=== PATIENT | female | born 1960 | race Caucasian/White ===

== ENCOUNTER 2023-11-11 06:39 | Day surgery (SDC) | payer OTHER ==
[~2023-11-11] VITALS: Ht 165.1 cm; Wt 75.3 kg
[2023-11-11] MEDS ORDERED: fentaNYL citrate 0.05 MG/ML VIAL ONE (08:01)
[2023-11-11] MEDS ORDERED: LIDOCAINE 2% 100 MG/5 ML UJET TP ONE (08:02)
[2023-11-11] MEDS: fentaNYL citrate 0.05 MG/ML VIAL IVP ONE (08:25)
[2023-11-11] MEDS ORDERED: fentaNYL citrate 0.05 MG/ML VIAL IVP SCH (09:00)
== END 2023-11-11 10:00 | disposition home or self-care (01) ==
LOC: MDS 06:39 → MMU 06:39 → MDS 10:00
PROVIDERS: ATTEND Internal Medicine Gastroenterology
DX: Z12.11 Encounter for screening for malignant neoplasm of colon (principal); K63.5 Polyp of colon; K57.30 Diverticulosis of large intestine without perforation or abscess without bleeding; E78.5 Hyperlipidemia, unspecified; I10 Essential (primary) hypertension; M19.90 Unspecified osteoarthritis, unspecified site; Z90.49 Acquired absence of other specified parts of digestive tract; Z79.899 Other long term (current) drug therapy
CPT/HCPCS: 45385; J3010